=== PATIENT | male | born 1980 | race Caucasian/White ===

== ENCOUNTER 2019-08-18 18:25 | Emergency (ER) | payer SELFPAY ==
[~2019-08-18] VITALS: Ht 185.4 cm; Wt 86.8 kg
[2019-08-18 19:01] VITALS: BP 122/61
[2019-08-18] MEDS ORDERED: MAALOX/HYOSCYAMINE/LIDOCAINE 45 ML BTL PO ONE (20:00)
--- NOTE | 2019-08-18 20:50 | NUR ---
Patient had to leave as detention "beds filling up. I'll come back tomorrow."
== END 2019-08-18 20:56 ==
LOC: ED 20:50
DX: R10.30 Lower abdominal pain, unspecified (principal); M25.561 Pain in right knee; Z53.21 Procedure and treatment not carried out due to patient leaving prior to being seen by health care provider

== ENCOUNTER 2019-08-19 06:03 | Emergency (ER) | payer MEDICAID ==
[~2019-08-19] VITALS: Ht 185.4 cm; Wt 68.9 kg
[2019-08-19] MEDS ORDERED: SODIUM CHLORIDE 0.9% 1,000ML IVBOLUS ONE (06:30)
[2019-08-19] MEDS ORDERED: SODIUM CHLORIDE FLUSH 10ML SYR IVF ONE (06:30)
[2019-08-19] MEDS ORDERED: KETOROLAC 30 MG/1 ML IVPush ONE (06:30)
[2019-08-19] MEDS ORDERED: METOCLOPRAMIDE 5 MG/ML, 2ML IVPush ONE (06:30)
[2019-08-19] MEDS ORDERED: DIPHENHYDRAMINE 50 MG/ML, 1ML IVPush ONE (06:30)
[2019-08-19] MEDS ORDERED: METOCLOPRAMIDE 5 MG/ML, 2ML ONE (06:38)
[2019-08-19] MEDS ORDERED: DIPHENHYDRAMINE 50 MG/ML, 1ML ONE (06:38)
[2019-08-19] MEDS ORDERED: KETOROLAC 30 MG/1 ML ONE (06:38)
[2019-08-19 06:49] LABS: BASOPHILS # (AUTO) 0.02 x10^3/uL (0-0.1); BASOPHILS % (AUTO) 0 % (0-1); EOSINOPHILS # (AUTO) 0.09 x10^3/uL (0-0.4); EOSINOPHILS % (AUTO) 1 % (1-7); LYMPHOCYTES # (AUTO) 0.89 x10^3/uL (1-3.4); LYMPHOCYTES % (AUTO) 9 % (22-44); MD NO; MEAN CORPUSCULAR HEMOGLOBIN 30.9 pg (27.5-34.5); MEAN CORPUSCULAR HGB CONC 33.5 g/dL (33.2-36.2); MEAN CORPUSCULAR VOLUME 92.3 fL (81-97); MEAN PLATELET VOLUME 10.8 fL (7.4-10.4); MONOCYTES # (AUTO) 1.08 x10^3/uL (0.2-0.8); MONOCYTES % (AUTO) 11 % (2-9); NEUTROPHILS # (AUTO) 7.58 x10^3/uL (1.8-6.8); NEUTROPHILS % (AUTO) 79 % (42-75); PLATELET COUNT 210 x10^3/uL (130-400); RED BLOOD COUNT 5.16 x10^6/uL (4.38-5.82); RED CELL DISTRIBUTION WIDTH 12.7 % (9.4-14.8)
--- NOTE | 2019-08-19 06:52 | NUR ---
PT TO ED WITH C/O ABDOMINAL PAIN, DIARRHEA AND GAS FOR X2 DAYS. PT REPORTS FEELING DEHYDRATED. PT DENIES N/V. REPORTS EXCESSIVE ETOH, METH, MARIJUANA USE X2 DAYS AGO. PT MEDICATED PER SEP, PLACED ON MONITORING, CALL LIGHT WITHIN REACH, ALL SAFETY MEASURES IN PLACE.
--- NOTE | 2019-08-19 06:54 | NUR ---
REPORT TO REGINA HONG.
[2019-08-19 06:59] LABS: ALANINE AMINOTRANSFERASE 32 U/L (12-78); ANION GAP 8 mmol/L (5-15); CALCIUM 8.9 mg/dL (8.5-10.1); CHLORIDE 110 mmol/L (98-107); CREATININE 0.81 mg/dL (0.7-1.3)
[2019-08-19 07:02] LABS: ALKALINE PHOSPHATASE 71 U/L (45-117); BILIRUBIN,TOTAL 0.9 mg/dL (0.2-1.0); TOTAL PROTEIN 7.7 g/dL (6.4-8.2)
--- NOTE | 2019-08-19 07:03 | NUR ---
RECEIVED BEDSIDE REPORT FROM JUDSON RN, PLAN OF CARE DISCUSSED. PT STATES PAIN IS 5/10 AT THIS TIME. IV INFUSING WELL. PT VERBALIZED NO NEEDS AT THIS TIME.
--- NOTE | 2019-08-19 08:13 | NUR ---
Patient/Caregiver given discharge instructions and they have confirmed that they understand the instructions. Patient ambulatory with steady gait.
[2019-08-19 08:14] VITALS: BP 117/63
== END 2019-08-19 08:38 | disposition home or self-care (01) ==
LOC: ED 08:00
DX: R19.7 Diarrhea, unspecified (principal); R11.2 Nausea with vomiting, unspecified; F15.10 Other stimulant abuse, uncomplicated; I51.7 Cardiomegaly; F17.200 Nicotine dependence, unspecified, uncomplicated
CPT/HCPCS: 36415; 80053; 83690; 85025; 93005; 96361; 96374; 96375; 99284; J1200; J1885; J2765; J7030; 96360

== ENCOUNTER 2019-08-19 13:53 | Emergency (ER) | payer MEDICAID ==
[~2019-08-19] VITALS: Ht 185.4 cm; Wt 87.7 kg
--- NOTE | 2019-08-19 13:55 | NUR ---
CALLED PT TO [facility]LEXAN[facility]A NO ANSWER
[2019-08-19] MEDS ORDERED: SODIUM CHLORIDE 0.9% 1,000 ML IV ONE (14:22)
[2019-08-19] MEDS ORDERED: SODIUM CHLORIDE 0.9% 1,000ML IVBOLUS ONE (14:30)
[2019-08-19] MEDS ORDERED: SODIUM CHLORIDE FLUSH 10ML SYR IVF ONE (14:30)
[2019-08-19] MEDS ORDERED: ONDANSETRON 2MG/ML, 2ML IVPush ONE (14:30)
[2019-08-19 14:50] LABS: ALANINE AMINOTRANSFERASE 23 U/L (12-78); ALBUMIN 3.8 g/dL (3.4-5.0); ANION GAP 8 mmol/L (5-15); CALCIUM 8.1 mg/dL (8.5-10.1); CHLORIDE 110 mmol/L (98-107)
[2019-08-19 14:53] LABS: ALKALINE PHOSPHATASE 64 U/L (45-117); BASOPHILS # (AUTO) 0.01 x10^3/uL (0-0.1); BASOPHILS % (AUTO) 0 % (0-1); BILIRUBIN,TOTAL 0.9 mg/dL (0.2-1.0); CREATININE 0.91 mg/dL (0.7-1.3); EOSINOPHILS % (AUTO) 2 % (1-7); LYMPHOCYTES # (AUTO) 0.92 x10^3/uL (1-3.4); LYMPHOCYTES % (AUTO) 15 % (22-44); MD NO; MEAN CORPUSCULAR HEMOGLOBIN 31.1 pg (27.5-34.5); MEAN CORPUSCULAR HGB CONC 33.6 g/dL (33.2-36.2); MEAN CORPUSCULAR VOLUME 92.6 fL (81-97); MEAN PLATELET VOLUME 10.4 fL (7.4-10.4); MONOCYTES # (AUTO) 0.57 x10^3/uL (0.2-0.8); MONOCYTES % (AUTO) 10 % (2-9); NEUTROPHILS # (AUTO) 4.41 x10^3/uL (1.8-6.8); NEUTROPHILS % (AUTO) 73 % (42-75); PLATELET COUNT 185 x10^3/uL (130-400); RED BLOOD COUNT 4.67 x10^6/uL (4.38-5.82); RED CELL DISTRIBUTION WIDTH 12.8 % (9.4-14.8); TOTAL PROTEIN 7.1 g/dL (6.4-8.2)
[2019-08-19] MEDS ORDERED: ONDANSETRON 2MG/ML, 2ML ONE (15:01)
--- NOTE | 2019-08-19 15:15 | NUR ---
PT UOB X2 WITH WATERY DIARRHEA. SAMPLE OBTAINED.
[2019-08-19] MEDS ORDERED: OMNIPAQUE 350 MG/ML, 100ML BOTTLE ONE (15:42)
--- NOTE | 2019-08-19 15:42 | NUR ---
AFTER RETURN FROM CT PT RESTING ON SIDE WIT IV FLUIDS INFUSING
[2019-08-19 16:20] LABS: CLOSTRIDIUM DIFFICILE ANTIGEN NEGATIVE; CLOSTRIDIUM DIFFICILE TOXIN NEGATIVE (Negative)
[2019-08-19 17:00] VITALS: BP 111/57
[2019-08-19 17:24] LABS: MICROSCOPIC NOT IND
[2019-08-19 17:28] LABS: CULTURE INDICATED? NO
--- NOTE | 2019-08-19 17:28 | NUR ---
CONTINUES TO REST WITH EYES CLOSED WITH FLUIDS INFUSING WHILE AWAITING DISPO
== END 2019-08-19 18:15 | disposition home or self-care (01) ==
LOC: ED 14:28
DX: K52.9 Noninfective gastroenteritis and colitis, unspecified (principal); F17.200 Nicotine dependence, unspecified, uncomplicated
CPT/HCPCS: 36415; 74177; 80053; 81003; 83690; 85025; 87324; 89055; 96361; 96374; 99285; J2405; J7030; Q9967

== ENCOUNTER 2019-08-19 18:32 | Emergency (ER) | payer MEDICAID ==
[~2019-08-19] VITALS: Ht 185.4 cm; Wt 85.4 kg
[2019-08-19 18:36] VITALS: BP 104/44
--- NOTE | 2019-08-19 18:45 | NUR ---
PT HERE WITH C/O LEFT HAND PAIN AND SWELLING X 2 DAYS, DENIES TRAUMA.
[2019-08-19] MEDS ORDERED: IBUPROFEN 200 MG TABLET ONE (18:51)
--- NOTE | 2019-08-19 18:54 | NUR ---
PT MEDICATED PER ORDERS.
[2019-08-19] MEDS ORDERED: IBUPROFEN 200 MG TABLET PO ONE (19:00)
--- NOTE | 2019-08-19 19:17 | NUR ---
Patient/Caregiver given discharge instructions and they have confirmed that they understand the instructions. Patient ambulatory with steady gait.
== END 2019-08-19 19:28 | disposition home or self-care (01) ==
LOC: ED 19:22
DX: M79.642 Pain in left hand (principal); R19.7 Diarrhea, unspecified; Z72.9 Problem related to lifestyle, unspecified
CPT/HCPCS: 99283

== ENCOUNTER 2019-08-24 13:10 | Emergency (ER) | payer MEDICAID ==
[2019-08-24 13:15] VITALS: BP 93/68
[2019-08-24] MEDS ORDERED: ACETAMINOPHEN 500 MG TABLET PO ONE (13:30)
[2019-08-24] MEDS ORDERED: THIAMINE 100MG TABLET PO ONE (13:30)
[2019-08-24] MEDS ORDERED: THIAMINE 100MG TABLET ONE (13:38)
[2019-08-24] MEDS ORDERED: ACETAMINOPHEN 500 MG TABLET ONE (13:38)
== END 2019-08-24 14:47 | disposition home or self-care (01) ==
LOC: ED 14:30
DX: S01.81XA Laceration without foreign body of other part of head, initial encounter (principal); R00.0 Tachycardia, unspecified; Y04.0XXA Assault by unarmed brawl or fight, initial encounter; Y93.89 Activity, other specified; Y92.410 Unspecified street and highway as the place of occurrence of the external cause; Y99.8 Other external cause status
CPT/HCPCS: 99283